=== PATIENT | female | born 1940 | race Caucasian/White ===

== ENCOUNTER 2017-01-25 14:13 | Emergency (ER) | payer MEDICARE, BC ==
[~2017-01-25] VITALS: Ht 165.1 cm; Wt 64.2 kg
[~2017-01-25 14:13] MED LIST: EZET10
[2017-01-25 14:16] VITALS: BP 115/75; PULSE 98; RESP 20; TEMP 98.4; O2SAT 96
--- NOTE | 2017-01-25 14:46 | PD ---
HPI Chief Complaint: Complaint Time Seen by Provider: 14:40 Travel History International Travel<30 days: No Contact w/Intl Traveler<30days: No Traveled to known affect area: No History of Present Illness HPI The patient is a 76-year-old female who presents emergency department for burning in the pelvic region of 1 week's duration. The patient has a history of right hip and right pelvic pain and was seen by her primary physician Dr. Stuart who performed x-rays a little over 1 month ago. Patient states she had no fracture, was diagnosed with arthritis and was referred to orthopedics. The patient has an orthopedic appointment tomorrow. The patient states over the last week she's had some increasing discomfort over the suprapubic region and now has pain and burning in the genitourinary area. She denies any obvious erythema, itching, , or urgency. She denies any unusual bulges in the vaginal area and denies any known history of prolapse. The patient called her daughter who is a nurse in [place] and stated to go to the emergency department immediately. Patient also states that she has a familial history of Lyme disease because her family members [place]. She also has a history of enlarged veins the lower extremities, is seen Dr. Chavez on Thursday for her "vein problems". She does note she had recent ultrasounds which were negative for DVT. The patient denies any fever, chills, sweats, nausea, vomiting, or change in bowel habits. PFSH Past Medical History High Cholesterol: Yes Diminished Hearing: No ?: Not Past Surgical History Appendectomy: Yes Hysterectomy: Yes Social History Alcohol Use: No Tobacco Use: No Substance Use: No Allergies-Medications (Allergen,Severity, Reaction): Coded Allergies: Penicillin (Verified Allergy, Mild, 01/25/17) Reported Meds & Prescriptions Reported Meds & Active Scripts Active Review of Systems Except as stated in HPI: all other systems reviewed are Neg General / Constitutional: No: Fever Cardiovascular: No: Chest Pain or Discomfort Respiratory: No: Shortness of Breath Gastrointestinal: No: Nausea, Vomiting, Diarrhea, Abdominal Pain, Constipation Genitourinary: Positive: Pelvic Pain (burning in the area for one week), No : Urgency, Frequency, Dysuria, Hematuria, Discharge, Vaginal Bleeding Musculoskeletal: Positive: Arthralgias, Pain Skin: No Rash, No Itching Neurologic: No: Paresthesia, Sensory Disturbance Physical Exam Narrative GENERAL: Awake, alert, nontoxic-appearing 76-year-old female who appears her stated age and is in no acute respiratory distress. SKIN: Focused skin assessment warm/dry. HEAD: Atraumatic. Normocephalic. EYES: No injection or drainage. ENT: No nasal bleeding or discharge. Mucous membranes pink and moist. NECK: Trachea midline. No JVD. CARDIOVASCULAR: Regular rate and rhythm. No murmur appreciated. RESPIRATORY: No accessory muscle use. Clear to auscultation. Breath sounds equal bilaterally. GASTROINTESTINAL: Abdomen soft, minimal suprapubic tenderness. Genitourinary: The exam was performed in the presence of a female nurse. External examination reveals minimal irritation of the labia majora bilateral, no excoriations are noted. No tenderness or significant inguinal lymphadenopathy noted. Examination of the introitus reveals no visible bulges, no obvious cystocele. No visible discharge. Speculum examination was not performed. MUSCULOSKELETAL: No obvious deformities. No clubbing. No cyanosis. No edema. Superficial varicosities lower extremities noted. NEUROLOGICAL: Awake and alert. No obvious cranial nerve deficits. Motor grossly within normal limits. Normal speech. PSYCHIATRIC: Appropriate mood and affect; insight and judgment normal. Data Data Last Documented VS Vital Signs Date Time Temp Pulse Resp B/P Pulse Ox O2 Delivery O2 Flow Rate FiO2 01/25/17 14:16 98.4 98 20 115/75 96 Orders Urinalysis - C+S If Indicated (01/25/17 14:40) Urine Culture (01/25/17 15:15) Labs Laboratory Tests Test 01/25/17 15:15 Urine Collection Type CLEAN CATCH Urine Color YELLOW Urine Turbidity CLEAR Urine pH 6.0 Urine Specific [place] 1.018 Urine Protein NEG mg/dL Urine Glucose (UA) NEG mg/dL Urine Ketones TRACE mg/dL Urine Occult Blood NEG Urine Nitrite NEG Urine Bilirubin NEG Urine Leukocyte Esterase SMALL Urine RBC 0-3 /hpf Urine WBC 15-19 /hpf Urine Squamous Epithelial 0-5 /hpf Cells Urine Bacteria OCC /hpf Microscopic Urinalysis Comment CULTURE INDICATED Urine Collection Time 15:15 [facility] Medical Decision Making Medical Screen Exam Complete: Yes Emergency Medical Condition: Yes Medical Record Reviewed: Yes Interpretation(s) Laboratory Tests Test 01/25/17 15:15 Urine Collection Type CLEAN CATCH Urine Color YELLOW Urine Turbidity CLEAR Urine pH 6.0 Urine Specific [place] 1.018 Urine Protein NEG mg/dL Urine Glucose (UA) NEG mg/dL Urine Ketones TRACE mg/dL Urine Occult Blood NEG Urine Nitrite NEG Urine Bilirubin NEG Urine Leukocyte Esterase SMALL Urine RBC 0-3 /hpf Urine WBC 15-19 /hpf Urine Squamous Epithelial 0-5 /hpf Cells Urine Bacteria OCC /hpf Microscopic Urinalysis Comment CULTURE INDICATED Urine Collection Time 15:15 Differential Diagnosis Differential diagnosis includes UTI, vaginitis, atrophic vaginitis, dermatitis, radiculopathy, neuralgia, referred pain. Narrative Course The patient's external examination is unremarkable, she has an orthopedic appointment tomorrow with an orthopedist for continuing right hip pain, this may be related to referred pain versus UTI. No obvious vaginitis noted. Therefore, UA was sent to lab. The patient's UA reveals WBCs and leukocyte esterase, therefore, patient will be treated with Bactrim and Pyridium. She was provided her first dose in the emergency department. She is advised to follow-up with her primary physician. She will be provided a copy of her UA results at discharge. Diagnosis Primary Impression: UTI (urinary tract infection) Qualified Code: N30.00 - Acute cystitis without hematuria Patient Instructions: General Instructions Additional Instructions: Medications as directed. Follow-up with her primary physician. Please provide the patient a copy of her UA results at discharge. Return if symptoms worsen or progress. Med/Other Pt SpecificInfo: Prescription(s) given Scripts Phenazopyridine (Pyridium)100 Mg [id number] Mg PO Q8H PRN (DYSURIA) 2 Days Ref 0 Prov:Murray Medeiros MD 01/25/17 Sulfamethoxazole-Trimethoprim (Bactrim DS)800-160 Mg Tab1 Tab PO BID #14 TAB Ref 0 Prov:Murray Medeiros MD 01/25/17 Disposition: 01 DISCHARGE HOME Condition: Stable Murray Medeiros MD Jan 25, 2017 14:46
[2017-01-25 15:25] LABS: BLOOD, URINE NEG (NEG); GLUCOSE,URINE NEG (NEG); KETONE, URINE TRACE mg/dL (NEG); NITRITE,URINE NEG (NEG)
[2017-01-25 15:35] LABS: METHOD OF COLLECTION CLEAN CATCH; URINE COLOR YELLOW (YELLW/STRAW)
[2017-01-25 15:36] LABS: BACTERIA, URINE OCC /hpf; COMMENT (UR) CULTURE INDICATED; CULTURE IF INDICATED CULTURE INDICATED; RBC, URINE 0-3 /hpf (0-3); SQUAMOUS EPITHELIAL CELL URINE 0-5 /hpf (0-5); WBC, URINE 15-19 /hpf (0-5)
[2017-01-25] MEDS ORDERED: BACT800T5 PO (15:43)
[2017-01-25] MEDS ORDERED: PHEN0.4T PO (15:43)
[2017-01-25] MEDS ORDERED: PHENAZOPYRIDINE HCL 200 MG TAB PO ONE (15:45)
[2017-01-25] MEDS ORDERED: SULFAMETHOXAZOLE-TRIMETHOPRIM DS 800-160 MG TAB PO ONE (15:45)
== END 2017-01-25 16:16 | disposition home or self-care (01) ==
LOC: PHED 14:13
DX: N30.00 Acute cystitis without hematuria (principal); B96.89 Other specified bacterial agents as the cause of diseases classified elsewhere
CPT/HCPCS: 81001; 87086; 99284